=== PATIENT | male | born 1995 | race Caucasian/White ===

== ENCOUNTER 2018-10-25 12:48 | Inpatient (IN) | payer BC, MEDICAID, OTHER ==
[~2018-10-25] VITALS: Ht 182.9 cm; Wt 59.4 kg
[2018-10-25] MEDS ORDERED: CLON0.5T8 PO (12:58)
[2018-10-25] MEDS ORDERED: REME30TA PO (12:58)
[2018-10-25] MEDS ORDERED: PROP10TA56 PO (12:58)
[2018-10-25] MEDS ORDERED: GABA-843 PO (12:58)
[2018-10-25 13:30] LABS: BASO # 0.1 10^3/uL (0.0-0.2); BASO % 1.6 % (0.0-1.0); EOS # 0.3 10^3/uL (0.0-0.5); EOS % 3.8 % (0.0-3.0); HEMATOCRIT 42.3 % (42.0-52.0); HEMOGLOBIN 14.9 g/dl (13.5-17.5); LYMPH % 26.6 % (24.0-44.0); MEAN CORPUSCULAR HEMOGLOBIN 33.5 pg (27.0-33.0); MEAN CORPUSCULAR HGB CONC 35.2 g/dl (32.0-36.5); MEAN CORPUSCULAR VOLUME 95.1 fl (80.0-96.0); MONO # 0.7 10^3/uL (0.0-0.8); MONO % 8.7 % (0.0-5.0); NEUTROPHILS # 4.5 10^3/uL (1.5-8.5); PLATELET COUNT, AUTOMATED 202 10^3/uL (150-450); RED BLOOD COUNT 4.45 10^6/uL (4.30-6.10); WHITE BLOOD COUNT 7.6 10^3/uL (4.0-10.0)
[2018-10-25 13:58] LABS: ALBUMIN 4.4 GM/DL (3.2-5.2); ALT/SGPT 51 U/L (12-78); BILIRUBIN,DIRECT 0.3 MG/DL (0.0-0.2); BLOOD UREA NITROGEN 9 MG/DL (7-18); CALCIUM LEVEL 9.2 MG/DL (8.5-10.1); CARBON DIOXIDE LEVEL 25 MEQ/L (21-32); CHLORIDE LEVEL 102 MEQ/L (98-107); GLOMERULAR FILTRATION RATE > 60.0 (>60); GLUCOSE, FASTING 93 MG/DL (70-100); LIPASE 147 U/L (73-393); POTASSIUM SERUM 3.7 MEQ/L (3.5-5.1); SODIUM LEVEL 140 MEQ/L (136-145)
[2018-10-25] MEDS ORDERED: NS 1,000 ML IV ONE ×2 (15:15→17:45)
[2018-10-25] MEDS ORDERED: ONDANSETRON 4MG/2ML VIAL (J2405) IV ONE (15:15)
[2018-10-25] MEDS: GASTROGRAFIN SOLUTION 30ML PO SCH ×2 (15:35→16:18)
[2018-10-25] MEDS ORDERED: KETOROLAC 30 MG/ML VIAL (J1885) IV ONE (15:45)
[2018-10-25] MEDS ORDERED: ISOVUE-370 76% 100ML VIAL (Q9967) As Ordered ONE (16:58)
[2018-10-25] MEDS ORDERED: methylPREDNISolone INJ 125 MG/2 ML VIAL (J2930) IV STA (18:31)
[2018-10-25] MEDS ORDERED: methylPREDNISolone INJ 125 MG/2 ML VIAL (J2930) IV SCH (18:45)
[2018-10-25] MEDS ORDERED: MELA10CA2 PO (18:54)
[2018-10-25] MEDS ORDERED: MORPHINE 2 MG/ML 1ML SYRINGE (J2270) IV ONE (19:15)
[2018-10-25] MEDS ORDERED: ACETAMINOPHEN TAB 650MG DOSE (2X325MG) PO PRN (19:45)
[2018-10-25 19:49] LABS: CK-MB VALUE MASS 2.2 NG/ML (<3.6); CPK CREATINE PHOSPHOKINASE 529 U/L (39-308); MB/CK RELATIVE INDEX 0.42 (< OR =4); TROPONIN I < 0.02 NG/ML (< 0.10)
--- NOTE | 2018-10-25 20:34 | REP ---
CHEST, TWO VIEWS: There is no evidence of acute infiltrate. No pleural effusion is seen. The heart is normal in size. The mediastinal silhouette is unremarkable. The visualized osseous structures are intact. IMPRESSION: No acute pulmonary disease. Electronically Signed by Shekhar Charlton MD 10/26/2018 06:25 P
[2018-10-25] MEDS ORDERED: clonazePAM 0.5 MG TAB PO STA (21:11)
--- NOTE | 2018-10-25 21:46 | ECGEPIP ---
[facility] - ED Test Date: 2018-10-25 Pat Name: NORMA HOWARD Department: Room: - Gender: Male Equip Maint Eng: : 1995 Requested By: Sissy Reyna Order Number: [id number] Reading MD: Sissy Reyna Measurements Intervals Rankin Rate: 68 P: 53 TX: 116 QRS: 72 QRSD: 76 T: 58 QT: 427 QTc: 457 Interpretive Statements SINUS RHYTHM WITH SHORT TX INTERVAL EARLY REPOLARIZATION NO PRIOR Electronically Signed on 10-25-2018 21:46:20 EDT by Sissy Reyna
[2018-10-25 22:05] VITALS: BP 150/82
--- NOTE | 2018-10-25 22:22 | HPEPDOC ---
[facility] Medical History & Physical Date of Admission Oct 25, 2018 Date of Service: Oct 25, 2018 History and Physical CHIEF COMPLAINT: [abd pain ] HISTORY OF PRESENT ILLNESS This is a 23 yo male with pmhx UC and crohns, htn and anxiety who presented to the ed for bloody diarrhea for the past few days. Patient was admitted last month in [place] for the same thing. He is not taking any meds, said he doesn't have pmd, because he is always moving. Patient also said he has lost about 10-15 lbs in the past few days as well. Per his father at bedside patient doesn't eat much., "sometimes , he would just eat a banana for the whole day" . Patient also has intermittent nbnb vomiting too, but denied fever, chills, sob. He has left lateral chest wall pain. Patient's father also stated that sometimes patient just stares and stays unresponsive for a while , but denied shaking or loc . ] PAST MEDICAL HISTORY: crohns UC htn anxiety PAST SURGICAL HISTORY: none SOCIAL HISTORY: lives with father, denied smoking, etoh use or drug use FAMILY HISTORY: strong paternal family hx of colitis in multiple family members ALLERGIES: Please see below. HOME MEDICATIONS: Please see below. LABORATORY DATA: See below. IMAGING: [CT ABD report pending ] MICROBIOLOGY: Please see below. ROS - all 10 point review of system is negative except for whats listed in HPI Physical exam Gen: NAD, healthy appearing , HEENT: normocephalic, atraumatic, no discharge from ears or nose, no oropharyngeal erythema or exudate, neck is supple, no lymphadenopathy, trachea midline CVS: RRR, normal S1n S2, no murmur, rubs, or gallops, no edema, no jvd Resp: LCTAB, no rhonchi, wheezes or crackles Abd : soft nontender, normal bowel sounds, no rebound tenderness or guarding MSK: no swelling, full range of motion, strength 5/5 Neuro: AOAx3, no confusion, no focal deficit Psych: normal mood and affect, good judgment ASSESSMENT and plan crohns flare - last colonoscopy was about 11yrs ago -s/p steroid in ed -f/u gi panel -GI consulted - Dr. Martinez informed by ed -c/w steroid for now htn c/w propranol anxiety//sleep problems c/w melatonin c/w mirtazipine Concern for abscent seizure outpt neuro consult dvt ppx -scd full code, from home , no svc Vital Signs Vital Signs Date Time Temp Pulse Resp B/P (MAP) Pulse Ox O2 Delivery O2 Flow Rate FiO2 10/25/18 22:07 17 10/25/18 21:09 78 151/100 (117) 100 Room Air 10/25/18 17:09 96.3 Laboratory Data Labs 24H Laboratory Tests 2 10/25/18 13:09: Immature Granulocyte % (Auto) 0.3, White Blood Count 7.6, Red Blood Count 4.45, Hemoglobin 14.9, Hematocrit 42.3, Mean Corpuscular Volume 95.1, Mean Corpuscular Hemoglobin 33.5H, Mean Corpuscular Hemoglobin Concent 35.2, Red Cell Distribution Width 13.5, Platelet Count 202, Neutrophils (%) (Auto) 59.0, Lymphocytes (%) (Auto) 26.6, Monocytes (%) (Auto) 8.7H, Eosinophils (%) (Auto) 3.8H, Basophils (%) (Auto) 1.6H, Neutrophils # (Auto) 4.5, Lymphocytes # (Auto) 2.0, Monocytes # (Auto) 0.7, Eosinophils # (Auto) 0.3, Basophils # (Auto) 0.1, Nucleated Red Blood Cells % (auto) 0.0, Anion Gap 13, Glomerular Filtration Rate > 60.0, Calcium Level 9.2, Aspartate Amino Transf (AST/SGOT) 103H, Alanine Aminotransferase (ALT/SGPT) 51, Alkaline Phosphatase 91, Total Bilirubin 1.0, Direct Bilirubin 0.3H, Total Protein 8.0, Albumin 4.4, Albumin/Globulin Ratio 1.22, Lipase 147 10/25/18 14:18: Urine Color STRAW, Urine Appearance CLEAR, Urine pH 7.0, Urine Specific [place] 1.005, Urine Protein 1+H, Urine Glucose (UA) NEGATIVE, Urine Ketones NEGATIVE, Urine Blood NEGATIVE, Urine Nitrite NEGATIVE, Urine Bilirubin NEGATIVE, Urine Urobilinogen 0.2, Urine Leukocyte Esterase NEGATIVE, Urine WBC (Auto) 1, Urine RBC (Auto) 1, Urine Hyaline Casts (Auto) 0, Urine Bacteria (Auto) NEGATIVE, Urine Squamous Epithelial Cells 0, Urine Sperm (Auto) 10/25/18 15:27: POC Lactate (Misc Panel) 2.01*H 10/25/18 19:07: Total Creatine Kinase 529H, Creatine Kinase MB 2.2, Creatine Kinase MB Relative Index 0.42, Troponin I < 0.02 CBC/BMP Laboratory Tests 10/25/18 13:09 Red Blood Count 4.45, Mean Corpuscular Volume 95.1, Mean Corpuscular Hemoglobin 33.5 H, Mean Corpuscular Hemoglobin Concent 35.2, Red Cell Distribution Width 13.5, Neutrophils (%) (Auto) 59.0, Lymphocytes (%) (Auto) 26.6, Monocytes (%) (Auto) 8.7 H, Eosinophils (%) (Auto) 3.8 H, Basophils (%) (Auto) 1.6 H, Neutrophils # (Auto) 4.5, Lymphocytes # (Auto) 2.0, Monocytes # (Auto) 0.7, Eosinophils # (Auto) 0.3, Basophils # (Auto) 0.1 Home Medications Scheduled Melatonin (Melatonin) 10 Mg Capsule, 10 MG PO QHS Mirtazapine (Remeron) 30 Mg Tablet, 30 MG PO QHS Scheduled PRN Clonazepam (Clonazepam) 0.5 Mg Tablet, 0.5 MG PO BID PRN for ANXIETY Gabapentin (Gabapentin) 300 Mg Capsule, 300 MG PO TID PRN for PAIN Propranolol HCl (Propranolol HCl) 10 Mg Tablet, 10 MG PO BID PRN for ANXIETY Allergies Coded Allergies: No Known Allergies (Unverified , 10/25/18) A-FIB/CHADSVASC A-FIB History Current/History of A-Fib/PAF?: No Current PO Anticoag Therapy: No Age/Risk Factor Scoring CHADSVASC: CHADSVASC Response (Comments) Value Age Risk Factor Age < 65 years old 0 Gender Risk Factor Male 0 Hx of HTN Yes 1 Hx of Stroke/TIA/or VTE No 0 Hx of Diabetes No 0 Hx of Vascular Disease No 0 Total 1 LG RANDALL MD Oct 25, 2018 22:22
[2018-10-26] VITALS (8 sets, daily range): BP systolic 133–154; BP diastolic 78–107
[2018-10-26] MEDS ORDERED: MORPHINE 4 MG/ML 1ML VIAL/SYRINGE (J2270) IV PRN (00:30)
[2018-10-26] MEDS ORDERED: PROPRANOLOL 10 MG TAB PO PRN ×2 (00:30→09:00)
[2018-10-26] MEDS ORDERED: GABAPENTIN 300 MG CAP PO PRN (00:30)
[2018-10-26] MEDS ORDERED: ONDANSETRON 4 MG TAB (S0181) PO PRN (00:30)
[2018-10-26] MEDS: MIRTAZAPINE 15 MG TAB PO SCH ×2 (00:56→21:12)
[2018-10-26] MEDS: RAMELTEON 8 MG TAB (ROZEREM) PO SCH ×2 (00:56→21:12)
[2018-10-26] MEDS: predniSONE 20 MG TAB PO SCH ×3 (05:57→21:12)
[2018-10-26 06:09] LABS: HEMATOCRIT 41.7 % (42.0-52.0); HEMOGLOBIN 14.6 g/dl (13.5-17.5); MEAN CORPUSCULAR HEMOGLOBIN 32.6 pg (27.0-33.0); MEAN CORPUSCULAR VOLUME 93.1 fl (80.0-96.0); PLATELET COUNT, AUTOMATED 194 10^3/uL (150-450); RED BLOOD COUNT 4.48 10^6/uL (4.30-6.10); WHITE BLOOD COUNT 3.7 10^3/uL (4.0-10.0)
[2018-10-26 06:32] LABS: BLOOD UREA NITROGEN 8 MG/DL (7-18); CALCIUM LEVEL 9.1 MG/DL (8.5-10.1); CARBON DIOXIDE LEVEL 27 MEQ/L (21-32); CHLORIDE LEVEL 97 MEQ/L (98-107); CREATININE FOR GFR 0.76 MG/DL (0.70-1.30); GLOMERULAR FILTRATION RATE > 60.0 (>60); GLUCOSE, FASTING 103 MG/DL (70-100); MAGNESIUM LEVEL 1.7 MG/DL (1.8-2.4); POTASSIUM SERUM 3.9 MEQ/L (3.5-5.1); SODIUM LEVEL 134 MEQ/L (136-145)
--- NOTE | 2018-10-26 07:51 | REP ---
CT of the abdomen and pelvis with IV contrast: There are no comparisons. The patient reportedly has clinical history of Crohn's colitis. The visualized lung marcus are unremarkable. There is decreased density throughout the hepatic parenchyma compatible with marked hepato steatosis. There is minimal subcutaneous body fat. There are no hepatic masses. There is no biliary duct dilatation. The gallbladder, pancreas and spleen are unremarkable. The adrenals, kidneys and abdominal aorta are unremarkable. There is no bowel distension or obstruction. Pelvis: The terminal ileum is unremarkable. The appendix is parallel to the tip of the cecum is unremarkable. There are areas of wall thickening in the sigmoid colon and rectosigmoid colon, compatible with the clinical history of Crohn's colitis. There are no diverticula. No other areas of colonic wall thickening are identified by CT. There is no ascites or adenopathy. The bladder is unremarkable. Skeletal structures are unremarkable. Sacroiliac articulations are unremarkable. A limbus vertebra is incidentally noted along the anterior superior margin of the L5 vertebral body. Impression: Focal zones of wall thickening of the sigmoid colon and rectosigmoid colon compatible with the clinical history of Crohn's colitis. There is no pericolonic inflammation or abscess. There is no ascites. The terminal ileum is unremarkable. No other areas of colonic or small bowel wall thickening are identified. There is hepato steatosis, somewhat unusual at this patient's age . There is minimal subcutaneous body fat. Electronically Signed by Shekhar Pittman MD 10/26/2018 07:42 A
[2018-10-26] MEDS ORDERED: hydrOXYzine 25 MG TAB PO ONE (09:45)
[2018-10-26] MEDS ORDERED: amLODIPine 5 MG TAB PO ONE ×2 (10:45→11:00)
[2018-10-26] MEDS ORDERED: PERCOCET 5MG/325MG TAB PO PRN (11:45)
--- NOTE | 2018-10-26 11:51 | IPNPDOC ---
Text Note Date of Service The patient was seen on 10/26/18. NOTE Subjective: PMHx: Mr. Saul is a 23 year old male with a PMHx significant for UC, Crohns and anxiety who presents with complaints of severe abdominal pain, bloody diarrhea, vomiting, 10-15 lb weight loss in 1 week. He states that his symptoms began 4 days ago. He currently rates his abdominal pain as a 6 or 7 out of 10 and says on presentation to the ER it was a 10/10. He describes the pain as sharp, exacerbated by palpation, and present throughout his entire abdomen. Upon admission he received an abdominal/Pelvic CT which showed marked hepatic steatosis and areas of wall thickening in the sigmoid colon and rectosigmoid colon compatible with Crohns colitis. While at the ER he also complained of chest pain and said he feels like he is going to . EKG and Troponins were negative. He also complained of sharp chest pain this morning after eating br eakfast. Repeat EKG was done and was negative for pathology. He admits that he has a history of anxiety with panic attacks and feels this could describe these events. Mr. Saul also stated that he had flank pain rated 4/10 yesterday that started after receiving his Prednisone but says the pain self-resolved. Finally, Mr. Saul also states he has a history of HTN and GERD. His HTN was originally diagnosed 2-3 years ago after his blood pressure was noted to be consistently elevated by physicians he was seeing for his anxiety. He says he was prescribed Propranolol for the HTN but is still hypertensive. Regarding his acid reflux, Mr. Saul say he suffered from acid reflux as a young teenager and that he took Prilosec for years until 17 years old. His Acid reflux has since returned and is currently bothering him. MHx: Crohns Disease w/ Colitis Anxiety/Panic Disorder Acute Pancreatitis Acid Reflux Allergies: NKA Procedural Hx: None reported Social Hx: Denies EtOH Denies Tobacco usage Denies Illicit Drug usage Family Hx: Father, 2 cousins, aunt, and a uncle have Crohn's disease Review of systems: HEENT: Positive for mild tinnitus in both ears that pt states began 4 days ago concurrently with his current GI symptoms. Negative for headache, changes in vision Respiratory: Positive for occasional SOB which patient associates with panic attacks-like episodes. Negative for cough. Cardiovascular: Positive for palpitations which he stated began last night and felt again this morning. Positive for sharp chest pain B/L which began this morning after he ate breakfast which he rated 6/10. Positive for HTN which he says was originally diagnosed at approximately 20 years of age. He states he was given medications for it from multiple physicians while getting seen for his anxiety. He does not remember the medications name. GI: Negative for current N/V, diarrhea, constipation. Last BM was yesterday morning and was bloody. Positive for current abdominal pain that is sharp, exacerbated by palpation, and located in all four quadrants. Rated 6/10. : Negative for dysuria or polyuria MSK: Positive for general sense of muscle weakness, no new focal deficits admitted. Psych: Generalized anxiety with panic attack-like episodes noted Objective: Vitals: See Below Physical Exam: General: Thin male who seems mildly fatigued. Cooperative to exam. Heart: Normal S1/S2 heart sounds with no audible rubs, gallops, or murmurs noted. Lungs: Clear to auscultation B/L Gastrointestinal: Normal bowel sounds present in all 4 quadrants. Tenderness no andrea to palpation in all 4 quadrants and along his midgastric line. No appreciable organomegaly Skin/extremities: No rashes or skin lesions noted. No Jaundice noted. Neurological: No nonfocal deficits noted. Psychological: Appropriate responses with a restricted affect. Slightly pressured speech. Assessment and Plan: #. Crohn's Flare up: Continue prednisone, gabapentin, acetaminophen, and ondans etron for antinflammatory and symptom management. Pt has not had any emetic episodes or bloody stools since admission. GI consult for possible colonoscopy with biopsy. Patient's diagnosis is based on clinical signs and family Hx, but has not had a definitive colonoscopy or biopsy yet. #. Chest pain: Pt's reported 2 episodes of acute onset chest pain which he described as being sharp and B/L. EKGs and Cardiac enzymes were tested for each event and were negative for pathology. Chest pain likely due to panic attacks attributable to his Hx of anxiety and his current disease state. Tums, Hydroxyz ine and Clonazepam were given to manage this pain. #. Unspecified Anxiety with panic attack-like episodes: Continue with Hydroxyzine, Clonazepam, Mirtazapine, and Ramelteon as needed to decrease anxi ety and promote sleep. #. HTN: Possibly 2/2 anxiety. Continue to treat his Crohn's and his anxiety and monitor for improvement for his HTN. Continue Propranolol. If no improvement s/p management of his conditions then further workup for HTN is required (thyroid, SAEED, malignancy, RAAS axis pathology ect) #. Acid Reflux: Start Omeprazole 20 mg PO QD. Administer a low fat diet. #. Disposition: Discharge upon resolution of GI symptoms (pain, diarrhea) with possible GI consult prior to admission. Upon discharge ensure continuity of care, patient has moved several time in his life and has had dozens of providers. He was not on medical management for his Crohn's prior to his admission to [facility] and a smooth transition to a new PCP would benefit this patient. I saw and evaluated the patient. I agree with the findings and plan of care as documented in the above note Mychal HEALY, I+O VSMychal, I+O Laboratory Tests 10/25/18 13:09 Red Blood Count 4.45, Mean Corpuscular Volume 95.1, Mean Corpuscular Hemoglobin 33.5 H, Mean Corpuscular Hemoglobin Concent 35.2, Red Cell Distribution Width 13.5, Neutrophils (%) (Auto) 59.0, Lymphocytes (%) (Auto) 26.6, Monocytes (%) (Auto) 8.7 H, Eosinophils (%) (Auto) 3.8 H, Basophils (%) (Auto) 1.6 H, Neutrophils # (Auto) 4.5, Lymphocytes # (Auto) 2.0, Monocytes # (Auto) 0.7, Eosinophils # (Auto) 0.3, Basophils # (Auto) 0.1 10/26/18 05:39 Red Blood Count 4.48, Mean Corpuscular Volume 93.1, Mean Corpuscular Hemoglobin 32.6, Mean Corpuscular Hemoglobin Concent 35.0, Red Cell Distribution Width 12.8, Calcium Level 9.1 Vital Signs Date Time Temp Pulse Resp B/P (MAP) Pulse Ox O2 Delivery O2 Flow Rate FiO2 10/26/18 11:01 69 150/107 10/26/18 09:24 98.2 18 98 10/25/18 21:09 Room Air I&O- Last 24 Hours up to 6 AM 10/26/18 06:00 Intake Total 1300 ml Output Total 0 ml Balance 1300 ml WAYNE CANO OMS-3 Oct 26, 2018 11:51 ERIKA LE MD Oct 27, 2018 13:05
[2018-10-26] MEDS: clonazePAM 0.5 MG TAB PO PRN (12:16)
[2018-10-26 13:29] LABS: C REACTIVE PROTEIN QUANTITATIV < 0.30 MG/DL (0.00-0.30); TROPONIN I < 0.02 NG/ML (< 0.10)
[2018-10-26] MEDS ORDERED: CALCIUM CARBONATE 500 MG CHEW U/D PO PRN (15:00)
[2018-10-27 02:00] VITALS: BP 140/91
[2018-10-27 06:00] VITALS: BP 131/86
[2018-10-27] MEDS: predniSONE 20 MG TAB PO SCH (06:23)
[2018-10-27] MEDS ORDERED: PANTOPRAZOLE 40MG INJ (PROTONIX) (C9113) IV SCH (07:00)
[2018-10-27] MEDS ORDERED: CALCIUM CARBONATE 500 MG CHEW U/D PO PRN (07:00)
[2018-10-27 08:26] LABS: HEMATOCRIT 39.9 % (42.0-52.0); HEMOGLOBIN 14.1 g/dl (13.5-17.5); MEAN CORPUSCULAR HGB CONC 35.3 g/dl (32.0-36.5); MEAN CORPUSCULAR VOLUME 96.1 fl (80.0-96.0); PLATELET COUNT, AUTOMATED 164 10^3/uL (150-450); RED BLOOD COUNT 4.15 10^6/uL (4.30-6.10); WHITE BLOOD COUNT 6.2 10^3/uL (4.0-10.0)
[2018-10-27 08:40] LABS: BLOOD UREA NITROGEN 7 MG/DL (7-18); CALCIUM LEVEL 9.4 MG/DL (8.5-10.1); CARBON DIOXIDE LEVEL 28 MEQ/L (21-32); CHLORIDE LEVEL 101 MEQ/L (98-107); CREATININE FOR GFR 0.79 MG/DL (0.70-1.30); GLOMERULAR FILTRATION RATE > 60.0 (>60); GLUCOSE, FASTING 114 MG/DL (70-100); POTASSIUM SERUM 3.8 MEQ/L (3.5-5.1); SODIUM LEVEL 139 MEQ/L (136-145)
[2018-10-27 10:00] VITALS: BP 149/91
[2018-10-27 10:28] VITALS: BP 132/81
--- NOTE | 2018-10-27 10:59 | ECGEPIP ---
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
[2018-10-27] MEDS ORDERED: PROT1TAB2 PO (11:16)
[2018-10-27] MEDS ORDERED: ASAC800T3 PO (11:16)
[2018-10-27] MEDS ORDERED: PRED20TA PO (11:16)
[2018-10-27] MEDS: clonazePAM 0.5 MG TAB PO PRN (11:49)
[2018-10-27] MEDS ORDERED: CLON0.5T17 PO (12:48)
--- NOTE | 2018-10-27 14:15 | DS.PDOC ---
Discharge Summary General Date of Admission Oct 25, 2018 at 19:31 Date of Discharge 10/27/18 Attending Physician: ERIKA LE MD Specialist/Consultants Involve: Refugio Martinez Discharge Summary PROCEDURES PERFORMED DURING STAY: None. ADMITTING/DISCHARGE DIAGNOSES: 1. Crohn's/ulcerative colitis flareup 2. Noncardiac chest pain 3. Anxiety 4. Hypertension 5. Acid reflux COMPLICATIONS/CHIEF COMPLAINT: Abdominal pain, bloody diarrhea, vomiting HISTORY OF PRESENT ILLNESS/HOSPITAL COURSE: Patient is a 23-year-old male who presented to the emergency room on 10/25/2018 with a one-week history of abdominal pain, bloody diarrhea, vomiting, and a 10-15 pound weight loss. Patient says he has a history of either ulcerative colitis or Crohn's. Patient had just recently moved to the area a few weeks ago. Patient was originally from [place]. Patient says he was hospitalized in [place] for a similar episode of Crohn's/ulcerative colitis a few weeks ago. Patient was admitted and started on prednisone 20 mg every 8 hours and was given pain medication. Throughout the patient's hospitalization he complained of chest pain. A cardiac workup was performed and showed a negative EKG for ischemic changes as well as negative troponins. Patient's vitals remained stable so pulmonary embolism was very unlikely. Patient has a history of anxiety and does have panic attacks. When his anxiety was treated, the patient's chest pain went away. After eating, the patient's chest pain would return. The patient was given Tums which helped with the patient's chest/abdominal discomfort. Patient did not have any episodes of diarrhea while in the hospital. Gastroenterology saw the patient and recommended the patient continue on prednisone 20 mg daily and mesalamine 800 mg 3 times a day and see Dr. Martinez in 2 weeks. On 10/27/2018, patient was feeling better. Patient tried eat some toast and did have a little bit of stomach discomfort however, this was easily treated with Tums. Patient did have a panic attack prior to being discharged and the patient was sent home with 5 days' worth of clonazepam with plans to follow-up with behavioral health. Patient was deemed ready for discharge and was discharged home on 10/27/2018. DISCHARGE MEDICATIONS: Please see below. ALLERGIES: Please see below. PHYSICAL EXAMINATION ON DISCHARGE: Vitals: (see below) General: No acute distress, laying comfortably in bed. HEENT: Moist mucous membranes. Neck: No JVD or lymphadenopathy Cardiac: RRR, No murmurs Pulm: Clear to auscultation b/l. No wheezing, rhonchi Abd: NT/ND + BS Ext: No edema or cyanosis LABORATORY DATA: Please see below. IMAGING: A CT of the abdomen and pelvis with IV and oral contrast performed on 10/25/2018 showed focal zones wall thickening of the sigmoid colon and rectosigmoid colon compatible with clinical history of Crohn's colitis. There is no pericolonic inflammation or abscess. There is no ascites. The terminal ileum was unremarkable. No other areas of colonic or small bowel wall thickening identified. There is a pattern steatosis, somewhat unusual at this patient's age. There is minimal subcutaneous body fat. A chest x-ray performed in 10/25/2017 showed no acute pulmonary disease. PROGNOSIS: Good ACTIVITY: As tolerated. DIET: Brat diet advanced as tolerated DISCHARGE PLAN/DISPOSITION: Discharge home DISCHARGE INSTRUCTIONS: 1. Establish with a new PCP in the area and follow-up within the next 2 weeks. 2. Call gastroenterology office on Monday and set up an appointment for 2 weeks from now. 3. Take prednisone 20 mg daily until you see gastroenterology. 4. Start mesalamine 800 mg 3 times a day until you see gastroenterology. 5. Start pantoprazole 40 mg daily until you see gastroenterology. 6. Return to the hospital if symptoms worsen. DISCHARGE CONDITION: Stable. I saw and evaluated the patient. I agree with the findings and plan of care as documented in the documenters note. I spent 45 minutes coordinating this patien t's discharge. Vital Signs/I&Os Vital Signs Date Time Temp Pulse Resp B/P (MAP) Pulse Ox O2 Delivery O2 Flow Rate FiO2 10/27/18 10:28 98.4 92 20 132/81 (98) 97 10/25/18 21:09 Room Air I&O- Last 24 Hours up to 6 AM 10/27/18 06:00 Intake Total 1020 ml Output Total 0 ml Balance 1020 ml Laboratory Data Labs 24H Laboratory Tests 2 10/27/18 07:52: Nucleated Red Blood Cells % (auto) 0.0, Anion Gap 10, Glomerular Filtration Rate > 60.0, Blood Urea Nitrogen 7, Creatinine 0.79, Sodium Level 139, Potassium Level 3.8, Chloride Level 101, Carbon Dioxide Level 28, Calcium Level 9.4 CBC/BMP Laboratory Tests 10/27/18 07:52 Red Blood Count 4.15 L, Mean Corpuscular Volume 96.1 H, Mean Corpuscular Hemoglobin 34.0 H, Mean Corpuscular Hemoglobin Concent 35.3, Red Cell Distribution Width 13.1, Calcium Level 9.4 Discharge Medications Scheduled Melatonin (Melatonin) 10 Mg Capsule, 10 MG PO QHS, (Reported) Mesalamine (Asacol Hd) 800 Mg Tablet.dr, 1 TAB PO TID Mirtazapine (Remeron) 30 Mg Tablet, 30 MG PO QHS, (Reported) Pantoprazole Sodium (Protonix) 40 Mg Tablet.dr, 1 TAB PO DAILY Prednisone (Prednisone) 20 Mg Tablet, 20 MG PO DAILY Scheduled PRN Clonazepam (Clonazepam) 0.5 Mg Tablet, 0.5 MG PO BID PRN for ANXIETY, (Reported) Clonazepam (Clonazepam) 0.5 Mg Tab.rapdis, 1 TAB PO BID PRN for ANXIETY Gabapentin (Gabapentin) 300 Mg Capsule, 300 MG PO TID PRN for PAIN, (Reported) Propranolol HCl (Propranolol HCl) 10 Mg Tablet, 10 MG PO BID PRN for ANXIETY, (Reported) Allergies Coded Allergies: No Known Allergies (Unverified , 10/25/18) PIPPA MCCALL DO Oct 27, 2018 14:15 ERIKA LE MD Oct 29, 2018 13:52
--- NOTE | 2018-10-28 08:56 | CR ---
DATE OF CONSULTATION: This is a 23-year white male who was admitted to [facility] ([facility]) for a previous known history of ulcerative colitis for at least 10 years. The patient has no complaints of fevers, night sweats or shaking chills. The patient has had for the last several weeks severe bloody diarrhea. The patient was apparently admitted last month in [place] for approximately a 3 day hospitalization for the same thing. He is not on any chronic medications. The patient apparently has always been moving. He has lost about 10-15 pounds in approximately 7-10 days. The patient apparently has a father who has known ulcerative colitis. Being seen now by GI for followup here for his ulcerative colitis. PAST MEDICAL HISTORY: 1. Ulcerative colitis. 2. Hypertension. 3. Generalized anxiety disorder with panic attacks. SOCIAL HISTORYL: The patient lives with his father. Denies alcohol or drug abuse. FAMILY HISTORY: Positive for ulcerative colitis in his father. REVIEW OF SYSTEMS: Noncontributory. In general, he is a well-developed, well-nourished, thin white male in no obvious acute distress. Appears stated age. Chest was clear. Cardiovascular exam showed a regular rhythm. No murmurs or gallops. Normal physiological split S1-S2. Abdomen soft, positive left-sided tenderness. No hepatosplenomegaly. Bowel sounds positive. Laboratory studies on admission shows a white count of 7600. H/H is 14.9 and 42.3. Platelets were normal at 202,000. Abdominal CT from 10/25/2018 was essentially normal except for thickening in the sigmoid colon and rectosigmoid for colon. The patient's terminal ileum was read as being normal. ANALYSIS: Apparent history of ulcerative colitis, rectal bleeding, diarrhea. At present time, the plan will be to send the patient home on prednisone 20 mg a day with Asacol tablets 800 mg 1 tablet by mouth three times a day. Discussion has been made for possible use of biologics on a chronic basis.
[2018-10-30 14:27] LABS: Chitobioside Carbohydrat (ACCA 36 units (0-90); Laminaribioside Carbohyd (ALCA 33 units (0-60); Mannobioside Carbohydrat (AMCA 22 units (0-100); Saccharomyces cerevisiae IgG A 18 units (0-50)
== END 2018-10-27 13:11 | disposition home or self-care (01) | DRG 245 ==
LOC: M ED 12:48 → M ED INP 19:31 → M MSPAV 22:00
PROVIDERS: ADMIT Internal Medicine; ATTEND Internal Medicine
DX: K50.90 Crohn's disease, unspecified, without complications (principal); I10 Essential (primary) hypertension; Z68.1 Body mass index [BMI] 19.9 or less, adult; F41.0 Panic disorder [episodic paroxysmal anxiety]; K21.9 Gastro-esophageal reflux disease without esophagitis; Z79.899 Other long term (current) drug therapy

== ENCOUNTER → 2019-01-23 | Outpatient (CLI) | payer OTHER ==
[~2019-01-23] MED LIST: ASAC800T3 PO; CLON0.5T17 PO; CLON0.5T2 PO; GABA-843 PO; MELA10CA2 PO; PRED20TA PO; PROP10TA56 PO; PROT1TAB2 PO; REME30TA PO
[2019-01-23 13:52] LABS: FREE T4 0.83 NG/DL (0.76-1.46); THYROID STIMULATING HORMONE 1.97 uIU/ML (0.358-3.740)
== END ==
LOC: M LAB 12:43
PROVIDERS: ATTEND Internal Medicine Gastroenterology
DX: R19.7 Diarrhea, unspecified (principal)

== ENCOUNTER → 2019-02-12 | Outpatient (CLI) | payer OTHER ==
[~2019-02-12] MED LIST changes: +E-Z-PAQUE 96% w/w SUSP 176GM BTL As Ordered ONE
--- NOTE | 2019-02-13 08:58 | REP ---
Small bowel follow-through The procedure was performed under the direct supervision of Dr. Torres. The images were reviewed with Dr. Torres. The plasticator film shows no organomegaly or pathological masses. The intestinal gas pattern is nonspecific. Liquid barium was administered and the barium column was followed through the small bowel to the level of the terminal ileum. Small bowel transit time is approximately 85 minutes . During fluoroscopy gentle palpation shows all loops are freely movable and pliable. There are no fixed or angulated loops. The small bowel mucosal pattern is normal in course and caliber. There is no transition to suggest a partial small bowel obstruction. Spot filming of the terminal ileum shows it to be unremarkable. Impression: Small bowel follow-through examination within normal limits. 0.8 minutes of fluoro time was utilized for this procedure. Electronically Signed by ANTONIO Irwin 02/13/2019 07:46 A Electronically Signed by Randell Torres MD 02/13/2019 08:50 A
== END ==
LOC: M RAD 08:10
PROVIDERS: ATTEND Internal Medicine Gastroenterology
DX: R19.7 Diarrhea, unspecified (principal)

== ENCOUNTER 2019-03-14 10:24 | Day surgery (SDC) | payer OTHER ==
[~2019-03-14] VITALS: Ht 182.9 cm; Wt 64.4 kg
[~2019-03-14 10:24] MED LIST changes: +DICY20TA11 PO; -E-Z-PAQUE 96% w/w SUSP 176GM BTL As Ordered ONE; +GABA800T4 PO; +NS 1,000 ML IV ONE; +PROP20TA72 PO; +RISP1TAB3 PO
[2019-03-14] MEDS ORDERED: LIDOCAINE 2% INJ 100 MG/5 ML SDV (FOR ANES.) As Ordered ONE (11:39)
[2019-03-14] MEDS ORDERED: propofoL 200 MG/20 ML VIAL As Ordered ONE ×2 (11:39→12:04)
--- NOTE | 2019-03-14 12:18 | ROOR ---
Patient Name: Lucian Saul Procedure Date: 03/14/2019 11:48 AM Date of : 1995 Age: 23 Room: [facility] Gender: Male Note Status: Finalized Procedure: Upper GI endoscopy Indications: Generalized abdominal pain, Weight loss Providers: Tor CHRISTENSEN MD Referring MD: Sj Atkins Do Requesting Provider: Medicines: Monitored Anesthesia Care Complications: No immediate complications. Procedure: Pre-Anesthesia Assessment: - The heart rate, respiratory rate, oxygen saturations, blood pressure, adequacy of pulmonary ventilation, and response to care were monitored throughout the procedure. The Endoscope was introduced through the mouth, and advanced to the second part of duodenum. The upper GI endoscopy was accomplished without difficulty. The patient tolerated the procedure well. Findings: The esophagus was normal. The stomach was normal. The examined duodenum was normal. Biopsies for histology were taken with a cold forceps in the second portion of the duodenum and in the third portion of the duodenum for evaluation of celiac disease. Biopsies were taken with a cold forceps on the anterior wall of the gastric antrum for Helicobacter pylori testing. Impression: - Normal esophagus. - Normal stomach. - Normal examined duodenum. - Biopsies were taken with a cold forceps for evaluation of celiac disease. - Biopsies were taken with a cold forceps for Helicobacter pylori testing. Recommendation: - Await pathology results. - Telephone endoscopist for pathology results in 2 weeks. - Observe patient's clinical course. Tor Christensen MD Tor CHRISTENSEN MD 03/14/2019 12:17:48 PM Electronically signed by Tor CHRISTENSEN MD Number of Addenda: 0 Note Initiated On: 03/14/2019 11:48 AM Estimated Blood Loss: Estimated blood loss: none.
--- NOTE | 2019-03-14 12:23 | ROOR ---
Patient Name: Lucian Saul Procedure Date: 03/14/2019 11:48 AM Date of : 1995 Age: 23 Room: [facility] Gender: Male Note Status: Finalized Procedure: Colonoscopy Indications: Abnormal CT of the GI tract, Chronic diarrhea, Weight loss Providers: Tor CHRISTENSEN MD Referring MD: Sj Atkins Do Requesting Provider: Medicines: Monitored Anesthesia Care Complications: No immediate complications. Procedure: Pre-Anesthesia Assessment: - The heart rate, respiratory rate, oxygen saturations, blood pressure, adequacy of pulmonary ventilation, and response to care were monitored throughout the procedure. The Colonoscope was introduced through the anus and advanced to 15 cm into the ileum. The colonoscopy was performed without difficulty. The patient tolerated the procedure well. The quality of the bowel preparation was good. Findings: The perianal and digital rectal examinations were normal. The terminal ileum appeared normal. Retroflexion in the right colon was performed. The colon (entire examined portion) appeared normal. There is no endoscopic evidence of inflammation in the entire colon. There is no endoscopic evidence of inflammation in the entire examined ileum. Biopsies were taken with a cold forceps in the entire colon and in the terminal ileum for histology. Fluid aspiration for microbiology was performed. Impression: - The examined portion of the ileum was normal. - The entire examined colon is normal. - Biopsies were taken with a cold forceps for histology in the entire colon and in the terminal ileum. - Fluid aspiration was performed for GI panel. Recommendation: - Telephone endoscopist for pathology results in 2 weeks. - Return to referring physician as previously scheduled. Tor Christensen MD Tor CHRISTENSEN MD 03/14/2019 12:23:35 PM Electronically signed by Tor CHRISTENSEN MD Number of Addenda: 0 Note Initiated On: 03/14/2019 11:48 AM Estimated Blood Loss: Estimated blood loss: none.
[2019-03-14 12:40] VITALS: BP 142/78
== END 2019-03-14 12:59 | disposition home or self-care (01) ==
LOC: M OPP 10:24
PROVIDERS: ATTEND Internal Medicine Gastroenterology
DX: K52.9 Noninfective gastroenteritis and colitis, unspecified (principal); R63.4 Abnormal weight loss; R93.3 Abnormal findings on diagnostic imaging of other parts of digestive tract; R10.84 Generalized abdominal pain; K63.89 Other specified diseases of intestine; I10 Essential (primary) hypertension; K51.90 Ulcerative colitis, unspecified, without complications; K92.2 Gastrointestinal hemorrhage, unspecified; K21.9 Gastro-esophageal reflux disease without esophagitis; R12 Heartburn; F41.0 Panic disorder [episodic paroxysmal anxiety]; F32.9 Major depressive disorder, single episode, unspecified; F17.200 Nicotine dependence, unspecified, uncomplicated; Z79.899 Other long term (current) drug therapy

== ENCOUNTER 2020-06-22 11:44 | Emergency (ER) | payer OTHER ==
[~2020-06-22] VITALS: Ht 182.9 cm; Wt 72.7 kg
[~2020-06-22 11:44] MED LIST changes: +GABA-282 PO; -GABA-843 PO; +MIRT-60 PO; -NS 1,000 ML IV ONE; -REME30TA PO; +RISP-8 PO; -RISP1TAB3 PO
[2020-06-22 12:41] LABS: BASO # 0.1 10^3/uL (0.0-0.2); BASO % 1.1 % (0.0-1.0); EOS # 0.2 10^3/uL (0.0-0.5); EOS % 3.7 % (0.0-3.0); HEMATOCRIT 44.9 % (42.0-52.0); HEMOGLOBIN 15.6 g/dl (13.5-17.5); LYMPH % 22.4 % (24.0-44.0); MEAN CORPUSCULAR HEMOGLOBIN 33.1 pg (27.0-33.0); MEAN CORPUSCULAR HGB CONC 34.7 g/dl (32.0-36.5); MEAN CORPUSCULAR VOLUME 95.1 fl (80.0-96.0); MONO # 0.4 10^3/uL (0.0-0.8); MONO % 9.7 % (2.0-8.0); NEUTROPHILS # 2.9 10^3/uL (1.5-8.5); NEUTROPHILS % 62.7 % (36.0-66.0); PLATELET COUNT, AUTOMATED 186 10^3/uL (150-450); RED BLOOD COUNT 4.72 10^6/uL (4.30-6.10); WHITE BLOOD COUNT 4.6 10^3/uL (4.0-10.0)
[2020-06-22 13:04] LABS: ALBUMIN 4.7 GM/DL (3.2-5.2); BILIRUBIN,DIRECT 0.4 MG/DL (0.0-0.2); BILIRUBIN,TOTAL 1.5 MG/DL (0.2-1.0); TOTAL PROTEIN 8.6 GM/DL (6.4-8.2)
--- NOTE | 2020-06-22 13:33 | REP ---
INDICATION: difficulty swallowing. COMPARISON: None. TECHNIQUE: Three views. AP and lateral projections. 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 No other bony abnormality is appreciated. The retropharyngeal soft tissues are not widened. Epiglottis is normal in appearance. Glottic and subglottic airway are intact. Nasopharynx and hypopharynx appear normal. Lung apices are clear on the frontal view. IMPRESSION: No soft tissue abnormality noted. 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 <Electronically signed by Mike Torres > 06/22/20 [id number]
--- NOTE | 2020-06-22 13:54 | REP ---
INDICATION: upper abd pain, nausea worse with food. COMPARISON: None. TECHNIQUE: Real-time sonographic evaluation of right upper quadrant performed. FINDINGS: The gallbladder demonstrates no evidence of intraluminal sludge or calculi, wall thickening or pericholecystic fluid. There is no intrahepatic or extrahepatic biliary dilatation, common bile duct measures 3 mm in maximum diameter. The liver demonstrates homogeneous echotexture with no gross mass. Visualized pancreas is grossly unremarkable, not optimally seen due to overlying bowel gas. The right kidney demonstrates no hydronephrosis, with a normal size of 9.7 cm in length. No free fluid is seen. IMPRESSION: Negative right upper quadrant ultrasound. <Electronically signed by Shekhar Charlton > 06/22/20 [id number]
[2020-06-22] MEDS ORDERED: NS 1,000 ML IV ONE (14:00)
[2020-06-22] MEDS ORDERED: ISOVUE-370 76% 100ML VIAL As Ordered ONE (14:47)
[2020-06-22] MEDS: GASTROGRAFIN SOLUTION 30ML PO SCH ×2 (14:54→15:25)
--- NOTE | 2020-06-22 16:57 | REP ---
INDICATION: sev upper/lower pain, hx colitis, unable to eat COMPARISON: None. TECHNIQUE: CT Scan of the abdomen and pelvis was performed with intravenous administration of 100 cc of Isovue 370, and oral contrast. FINDINGS: Lung bases: Unremarkable. Liver: Normal Gallbladder: Unremarkable. Spleen: Normal. Adrenals: Normal. Pancreas: Normal. Kidneys: Normal. Small and large bowel: Unremarkable. Free fluid: None. Abdominal aorta: No aneurysm or dissection. Adenopathy: None. Appendix: Not inflamed. Osseous structures: There is an unfused ossification center at the anterior superior aspect of the L5 vertebral body.. Pelvis: No mass. IMPRESSION: Negative CT abdomen and pelvis. <Electronically signed by Shekhar Charlton > 06/22/20 [id number]
[2020-06-22 17:32] VITALS: BP 161/91
== END 2020-06-22 18:42 | disposition home or self-care (01) ==
LOC: M ED 11:44
DX: R10.9 Unspecified abdominal pain (principal); R63.0 Anorexia; R11.0 Nausea; I10 Essential (primary) hypertension; K50.90 Crohn's disease, unspecified, without complications
CPT/HCPCS: 70360; 74177; 76705; 80047; 80076; 83690; 85025; 96360; 96361; 99284; Q9963; Q9967

== ENCOUNTER 2022-01-04 01:05 | Inpatient (IN) | payer OTHER ==
[~2022-01-04] VITALS: Ht 182.9 cm; Wt 150.0 kg
[~2022-01-04 01:05] MED LIST changes: -DICY20TA11 PO; +DICY20TA20 PO
[2022-01-04 02:45] LABS: APPEARANCE, URINE MANUAL CLEAR (CLEAR); COLOR, URINE MANUAL YELLOW (YELLOW); PH,URINE MAN 6.5 UNITS (5.0 - 7.0)
[2022-01-04 02:46] LABS: BILIRUBIN, URINE MANUAL 1+ (NEGATIVE); BLOOD URINE MANUAL TRACE (NEGATIVE); GLUCOSE, URINE (UA) MANUAL NEGATIVE (NEGATIVE); KETONE, URINE MANUAL 1+ mg/dL (NEGATIVE); NITRITE, URINE MANUAL NEGATIVE (NEGATIVE); PROTEIN, URINE MANUAL 1+ mg/dL (NEGATIVE); UROBILINOGEN, URINE MANUAL NORMAL (NORMAL)
[2022-01-04 02:47] LABS: LEUKOCYTE ESTERASE, URINE MAN TRACE (NEGATIVE)
[2022-01-04 02:57] LABS: AMORPHOUS SEDIMENT, URINE SMALL AMOUNT (NEGATIVE); BACTERIA, URINE NONE SEEN; HYALINE CAST, URINE NONE SEEN /lpf (0-1); MUCUS, URINE SMALL AMOUNT (NEGATIVE); RBC, URINE 0-1 /hpf (0-3); SQUAMOUS EPITHELIAL CELL URINE SMALL AMOUNT /hpf (SMALL AMT)
[2022-01-04 03:00] LABS: HEMATOCRIT 38.7 % (42.0-52.0); HEMOGLOBIN 13.7 g/dl (13.5-17.5); MEAN CORPUSCULAR HEMOGLOBIN 34.2 pg (27.0-33.0); MEAN CORPUSCULAR HGB CONC 35.4 g/dl (32.0-36.5); MEAN CORPUSCULAR VOLUME 96.5 fl (80.0-96.0); PLATELET COUNT, AUTOMATED 125 10^3/uL (150-450); RED BLOOD COUNT 4.01 10^6/uL (4.30-6.10); WHITE BLOOD COUNT 5.8 10^3/uL (4.0-10.0)
[2022-01-04 03:06] LABS: AMPHETAMINES LEVEL URINE NEGATIVE (NEGATIVE); BARBITURATES URINE NEGATIVE (NEGATIVE); BENZODIAZEPINES URINE NEGATIVE (NEGATIVE); COCAINE METABOLITE URINE NEGATIVE (NEGATIVE); METHADONE URINE NEGATIVE (NEGATIVE); OPIATES URINE NEGATIVE (NEGATIVE); PHENCYCLIDINE URINE NEGATIVE (NEGATIVE)
[2022-01-04 03:12] LABS: CANNABINOIDS URINE POSITIVE (NEGATIVE)
[2022-01-04 03:26] LABS: CHLORIDE LEVEL 96 MMOL/L (98-107); POTASSIUM SERUM 3.5 MMOL/L (3.5-5.1); SODIUM LEVEL 135 MMOL/L (136-145)
[2022-01-04 03:27] LABS: ALBUMIN 4.8 G/DL (3.2-5.2); CARBON DIOXIDE LEVEL 26 MMOL/L (20-31)
[2022-01-04 03:32] LABS: ALKALINE PHOSPHATASE 120 U/L (46-116); BLOOD UREA NITROGEN 12 MG/DL (9-23); CALCIUM LEVEL 10.6 MG/DL (8.5-10.1); ETHYL ALCOHOL (ETHANOL) 0.003 % (0.000-0.010); GLUCOSE, FASTING 132 MG/DL (60-100)
[2022-01-04 03:34] LABS: ALT/SGPT 197 U/L (7.0-40); AST/SGOT 391 U/L (<34); CREATININE FOR GFR 0.83 MG/DL (0.70-1.30); GLOMERULAR FILTRATION RATE > 60.0 (>60); TOTAL PROTEIN 8.2 G/DL (5.7-8.2)
[2022-01-04] MEDS ORDERED: risperiDONE 1 MG TAB PO SCH (09:00)
[2022-01-04] MEDS ORDERED: NS 1,000 ML IV ONE (10:45)
[2022-01-04 12:03] LABS: CK-MB VALUE MASS < 1.0 NG/ML (<3.6); PHOSPHORUS LEVEL 2.8 MG/DL (2.5-4.9)
[2022-01-04 12:04] LABS: CPK CREATINE PHOSPHOKINASE 311 U/L (46-171); MB/CK RELATIVE INDEX 0.32 (< OR =4)
[2022-01-04 13:54] LABS: CK-MB VALUE MASS < 1.0 NG/ML (<3.6)
[2022-01-04 13:55] LABS: CPK CREATINE PHOSPHOKINASE 310 U/L (46-171); MB/CK RELATIVE INDEX 0.32 (< OR =4)
[2022-01-04] MEDS ORDERED: LORazepam 2 MG/ML VIAL IV PRN (13:55)
[2022-01-04] MEDS ORDERED: levETIRAcetam INJection 1,000 MG in D5W 100 ML IV ONE (14:00)
[2022-01-04] MEDS ORDERED: LORazepam 2 MG TAB PO PRN ×2 (14:15→15:40)
[2022-01-04] MEDS ORDERED: REME45TA2 PO (14:23)
[2022-01-04] MEDS ORDERED: HOME MED LIST COMPLETE! XX SCH (14:25)
[2022-01-04 14:27] VITALS: BP 160/108
[2022-01-04] MEDS ORDERED: LORazepam 2 MG/ML VIAL IV STA (14:30)
[2022-01-04] MEDS ORDERED: OXAZEPAM 15MG CAP PO SCH (15:40)
[2022-01-04] MEDS ORDERED: PROPRANOLOL 20 MG TAB PO PRN (16:40)
[2022-01-04 16:56] LABS: INR 1.02; PROTHROMBIN TIME 13.6 SECONDS (12.5-14.5)
[2022-01-04 16:57] LABS: PARTIAL THROMBOPLASTIN TIME 26.7 SECONDS (24.8-34.2)
[2022-01-04 17:06] LABS: CK-MB VALUE MASS < 1.0 NG/ML (<3.6)
[2022-01-04 17:12] LABS: CPK CREATINE PHOSPHOKINASE 546 U/L (46-171); MB/CK RELATIVE INDEX 0.18 (< OR =4)
[2022-01-04] MEDS ORDERED: GABAPENTIN 100 MG CAP PO SCH (21:00)
[2022-01-04] MEDS ORDERED: THIAMINE 100 MG TAB PO SCH ×2 (21:00)
[2022-01-04] MEDS ORDERED: levETIRAcetam 250MG TABLET (KEPPRA) PO SCH (21:00)
[2022-01-04] MEDS ORDERED: GABAPENTIN 400MG CAP PO SCH (21:00)
[2022-01-04] MEDS ORDERED: MIRTAZAPINE 15 MG TAB PO SCH (21:00)
[2022-01-05] MEDS ORDERED: ENOXAPARIN 40MG/0.4ML SYRINGE (J1650 PER 10MG) SC SCH (09:00)
[2022-01-05] MEDS ORDERED: FOLIC ACID 1MG TAB PO SCH ×2 (09:00)
[2022-01-05] MEDS ORDERED: MULTIVITAMINS/MINERALS THERAP 1 TAB PO SCH ×2 (09:00)
== END 2022-01-04 20:14 | disposition left against medical advice (07) | DRG 53 ==
LOC: M ED 01:05 → M ED INP 16:00 → ENRESERV 16:46
PROVIDERS: ADMIT Internal Medicine; ATTEND Internal Medicine
DX: G40.409 Other generalized epilepsy and epileptic syndromes, not intractable, without status epilepticus (principal); F32.A Depression, unspecified; F41.9 Anxiety disorder, unspecified; Z91.14 Patient's other noncompliance with medication regimen; K52.9 Noninfective gastroenteritis and colitis, unspecified; F10.10 Alcohol abuse, uncomplicated

== ENCOUNTER 2022-05-08 02:44 | Inpatient (IN) | payer OTHER ==
[~2022-05-08] VITALS: Ht 182.9 cm; Wt 69.9 kg
[2022-05-08] VITALS (11 sets, daily range): BP systolic 137–163; BP diastolic 82–95; O2SAT 97–99
[~2022-05-08 02:44] MED LIST changes: +REME45TA2 PO
[2022-05-08] MEDS ORDERED: NS 1,000 ML IV ONE (03:00)
[2022-05-08 03:22] LABS: VENOUS BASE EXCESS -0.7 (-2.0-2.0); VENOUS HCO3 23.6 MEQ/L (23.0-27.0); VENOUS O2 SATURATION 94.2 % (60.0-80.0); VENOUS PARTIAL PRESSURE CO2 38.3 mmHg (38.0-50.0); VENOUS PARTIAL PRESSURE O2 71.3 mmHg (30.0-50.0); VENOUS PH 7.408 UNITS (7.330-7.430); VENOUS STANDARD HCO3 23.8 MEQ/L; VENOUS TOTAL CO2 24.8 MEQ/L (24.0-28.0)
[2022-05-08 03:25] LABS: BASO # 0.1 10^3/uL (0.0-0.2); BASO % 0.9 % (0.0-1.0); EOS # 0.1 10^3/uL (0.0-0.5); EOS % 1.3 % (0.0-3.0); HEMATOCRIT 44.2 % (42.0-52.0); HEMOGLOBIN 15.5 g/dl (13.5-17.5); MEAN CORPUSCULAR HEMOGLOBIN 32.9 pg (27.0-33.0); MEAN CORPUSCULAR HGB CONC 35.1 g/dl (32.0-36.5); MEAN CORPUSCULAR VOLUME 93.8 fl (80.0-96.0); MONO # 0.5 10^3/uL (0.0-0.8); NEUTROPHILS # 7.7 10^3/uL (1.5-8.5); NEUTROPHILS % 73.4 % (36.0-66.0); PLATELET COUNT, AUTOMATED 263 10^3/uL (150-450); RED BLOOD COUNT 4.71 10^6/uL (4.30-6.10); WHITE BLOOD COUNT 10.5 10^3/uL (4.0-10.0)
[2022-05-08 03:47] LABS: AMPHETAMINES LEVEL URINE NEGATIVE (NEGATIVE); BARBITURATES URINE NEGATIVE (NEGATIVE); BENZODIAZEPINES URINE NEGATIVE (NEGATIVE); COCAINE METABOLITE URINE NEGATIVE (NEGATIVE); METHADONE URINE NEGATIVE (NEGATIVE); OPIATES URINE NEGATIVE (NEGATIVE); PHENCYCLIDINE URINE NEGATIVE (NEGATIVE)
[2022-05-08 03:48] LABS: ETHYL ALCOHOL (ETHANOL) 0.108 % (0.000-0.010)
[2022-05-08 03:50] LABS: ALBUMIN 4.6 G/DL (3.2-5.2); ALKALINE PHOSPHATASE 92 U/L (46-116); ALT/SGPT 78 U/L (7.0-40); AST/SGOT 76 U/L (<34); BILIRUBIN,DIRECT < 0.1 MG/DL (<0.4); BILIRUBIN,TOTAL 0.3 MG/DL (0.3-1.2); BLOOD UREA NITROGEN 10 MG/DL (9-23); CALCIUM LEVEL 10.1 MG/DL (8.5-10.1); CARBON DIOXIDE LEVEL 26 MMOL/L (20-31); CHLORIDE LEVEL 105 MMOL/L (98-107); CREATININE FOR GFR 0.85 MG/DL (0.70-1.30); GLOMERULAR FILTRATION RATE > 60.0 (>60); GLUCOSE, FASTING 143 MG/DL (60-100); POTASSIUM SERUM 5.2 MMOL/L (3.5-5.1); SALICYLATE LEVEL < 3.0 MG/DL (<30); SODIUM LEVEL 141 MMOL/L (136-145); TOTAL PROTEIN 8.1 G/DL (5.7-8.2)
[2022-05-08 03:51] LABS: ACETAMINOPHEN LEVEL < 2.0 UG/ML (10.0-20.0)
[2022-05-08 03:52] LABS: THYROID STIMULATING HORMONE 2.632 uIU/ML (0.55-4.78)
[2022-05-08 04:04] LABS: CANNABINOIDS URINE POSITIVE (NEGATIVE)
[2022-05-08] MEDS ORDERED: NS 2,320 ML in IV 1 EA IV ONE (04:15)
[2022-05-08] MEDS ORDERED: levETIRAcetam INJection 1,000 MG in D5W 100 ML IV ONE (04:15)
[2022-05-08 04:36] LABS: OSMOLALITY SERUM 328 MOSM/KG (275-295)
[2022-05-08] MEDS ORDERED: LORazepam 2 MG/ML 1ML VIAL IV STA ×3 (08:34→09:44)
[2022-05-08] MEDS ORDERED: RISP-9 PO (09:46)
[2022-05-08] MEDS ORDERED: AMOX875T2 PO (09:46)
[2022-05-08] MEDS ORDERED: PRAZ2CAP PO (09:46)
[2022-05-08] MEDS ORDERED: TRAZ150T90 PO (09:48)
[2022-05-08] MEDS ORDERED: MED REC COMMENT (09:49)
[2022-05-08] MEDS ORDERED: HOME MED LIST COMPLETE! XX SCH (09:50)
[2022-05-08] MEDS ORDERED: LORazepam 2 MG TAB PO PRN (09:55)
[2022-05-08 09:56] LABS: ALBUMIN 3.8 G/DL (3.2-5.2); ALKALINE PHOSPHATASE 77 U/L (46-116); ALT/SGPT 60 U/L (7.0-40); AST/SGOT 53 U/L (<34); BILIRUBIN,DIRECT < 0.1 MG/DL (<0.4); BILIRUBIN,TOTAL 0.2 MG/DL (0.3-1.2); TOTAL PROTEIN 6.8 G/DL (5.7-8.2)
[2022-05-08] MEDS: THIAMINE 100 MG TAB PO SCH ×2 (10:03→20:07)
[2022-05-08] MEDS: MULTIVITAMINS/MINERALS THERAP 1 TAB PO SCH (10:28)
[2022-05-08] MEDS: FOLIC ACID 1MG TAB PO SCH (10:28)
[2022-05-08 10:45] LABS: CK-MB VALUE MASS < 1.0 NG/ML (<3.6)
[2022-05-08 10:48] LABS: VALPROIC ACID (DEPAKOTE) < 3.0 UG/ML (50.0-100.0)
[2022-05-08 10:50] LABS: CPK CREATINE PHOSPHOKINASE 130 U/L (46-171); MB/CK RELATIVE INDEX 0.76 (< OR =4)
[2022-05-08 14:59] LABS: LITHIUM LEVEL < 0.10 MMOL/L (0.60-1.20)
[2022-05-08] MEDS ORDERED: LR 1,000 ML IV ONE (19:05)
[2022-05-08 19:30] LABS: VENOUS BASE EXCESS -2.3 (-2.0-2.0); VENOUS HCO3 20.3 MEQ/L (23.0-27.0); VENOUS O2 SATURATION 99.4 % (60.0-80.0); VENOUS PARTIAL PRESSURE CO2 29.3 mmHg (38.0-50.0); VENOUS PARTIAL PRESSURE O2 169.7 mmHg (30.0-50.0); VENOUS PH 7.459 UNITS (7.330-7.430); VENOUS STANDARD HCO3 22.6 MEQ/L; VENOUS TOTAL CO2 21.2 MEQ/L (24.0-28.0)
[2022-05-08 19:41] LABS: BASO # 0.1 10^3/uL (0.0-0.2); BASO % 0.6 % (0.0-1.0); EOS # 0.1 10^3/uL (0.0-0.5); EOS % 1.3 % (0.0-3.0); LYMPH # 2.3 10^3/uL (1.5-5.0); LYMPH % 26.1 % (24.0-44.0); MEAN CORPUSCULAR HEMOGLOBIN 32.2 pg (27.0-33.0); MEAN CORPUSCULAR HGB CONC 33.7 g/dl (32.0-36.5); MEAN CORPUSCULAR VOLUME 95.7 fl (80.0-96.0); MONO # 0.8 10^3/uL (0.0-0.8); MONO % 9.3 % (2.0-8.0); NEUTROPHILS # 5.5 10^3/uL (1.5-8.5); NEUTROPHILS % 62.4 % (36.0-66.0); PLATELET COUNT, AUTOMATED 220 10^3/uL (150-450); RED BLOOD COUNT 3.97 10^6/uL (4.30-6.10); WHITE BLOOD COUNT 8.7 10^3/uL (4.0-10.0)
[2022-05-08 19:48] LABS: HEMOGLOBIN 12.8 g/dl (13.5-17.5)
[2022-05-08 20:04] LABS: ALBUMIN 3.8 G/DL (3.2-5.2); ALKALINE PHOSPHATASE 78 U/L (46-116); ALT/SGPT 55 U/L (7.0-40); AST/SGOT 46 U/L (<34); BILIRUBIN,DIRECT 0.1 MG/DL (<0.4); BILIRUBIN,TOTAL 0.3 MG/DL (0.3-1.2); BLOOD UREA NITROGEN 9 MG/DL (9-23); CALCIUM LEVEL 9.9 MG/DL (8.5-10.1); CARBON DIOXIDE LEVEL 21 MMOL/L (20-31); CHLORIDE LEVEL 112 MMOL/L (98-107); CREATININE FOR GFR 0.78 MG/DL (0.70-1.30); GLOMERULAR FILTRATION RATE > 60.0 (>60); GLUCOSE, FASTING 113 MG/DL (60-100); POTASSIUM SERUM 3.5 MMOL/L (3.5-5.1); SODIUM LEVEL 144 MMOL/L (136-145); TOTAL PROTEIN 6.8 G/DL (5.7-8.2)
[2022-05-08] MEDS ORDERED: PROHANCE 279.3MG/ML 15ML VIAL As Ordered ONE (22:58)
[2022-05-09] VITALS (13 sets, daily range): BP systolic 130–146; BP diastolic 74–94; O2SAT 97–98
[2022-05-09 05:59] LABS: HEMATOCRIT 35.7 % (42.0-52.0); HEMOGLOBIN 12.3 g/dl (13.5-17.5); MEAN CORPUSCULAR HEMOGLOBIN 33.2 pg (27.0-33.0); MEAN CORPUSCULAR HGB CONC 34.5 g/dl (32.0-36.5); MEAN CORPUSCULAR VOLUME 96.5 fl (80.0-96.0); PLATELET COUNT, AUTOMATED 196 10^3/uL (150-450); WHITE BLOOD COUNT 6.7 10^3/uL (4.0-10.0)
[2022-05-09 06:09] LABS: ABG BASE EXCESS 0.1 (-2.0-2.0); ABG HCO3 23.6 MEQ/L (22.0-26.0); ABG O2 SATURATION 98.3 % (95.0-99.0); ABG PARTIAL PRESSURE CO2 34.8 mmHg (35.0-45.0); ABG STANDARD HCO3 24.6 MEQ/L (22.0-26.0); ABG TOTAL CO2 24.7 MEQ/L (22.0-29.0); ABG pH (ARTERIAL) 7.449 UNITS (7.350-7.450)
[2022-05-09 06:15] LABS: INR 1.02; PROTHROMBIN TIME 13.6 SECONDS (12.5-14.5)
[2022-05-09 06:17] LABS: CPK CREATINE PHOSPHOKINASE 147 U/L (46-171)
[2022-05-09 06:20] LABS: ALBUMIN 3.7 G/DL (3.2-5.2); ALKALINE PHOSPHATASE 76 U/L (46-116); ALT/SGPT 50 U/L (7.0-40); AST/SGOT 39 U/L (<34); BILIRUBIN,TOTAL 0.7 MG/DL (0.3-1.2); BLOOD UREA NITROGEN 9 MG/DL (9-23); CALCIUM LEVEL 9.3 MG/DL (8.5-10.1); CARBON DIOXIDE LEVEL 24 MMOL/L (20-31); CHLORIDE LEVEL 111 MMOL/L (98-107); CREATININE FOR GFR 0.83 MG/DL (0.70-1.30); GLOMERULAR FILTRATION RATE > 60.0 (>60); GLUCOSE, FASTING 94 MG/DL (60-100); POTASSIUM SERUM 3.7 MMOL/L (3.5-5.1); SODIUM LEVEL 144 MMOL/L (136-145); TOTAL PROTEIN 6.5 G/DL (5.7-8.2)
[2022-05-09] MEDS: FOLIC ACID 1MG TAB PO SCH (09:55)
[2022-05-09] MEDS: MULTIVITAMINS/MINERALS THERAP 1 TAB PO SCH (09:55)
[2022-05-09] MEDS: THIAMINE 100 MG TAB PO SCH (09:55)
[2022-05-09] MEDS ORDERED: FOLI1TAB11 PO (10:12)
[2022-05-09] MEDS ORDERED: VITMTA PO (10:12)
[2022-05-09] MEDS ORDERED: THIA100TA PO (10:12)
[2022-05-09] MEDS ORDERED: LITH300C PO (10:24)
== END 2022-05-09 12:28 | disposition home or self-care (01) | DRG 52 ==
LOC: M ED 02:44 → M ED INP 09:51 → ENRESERV 11:09 → M PCU 12:05
PROVIDERS: ADMIT Student in an Organized Health Care Education/Training Program; ATTEND Student in an Organized Health Care Education/Training Program
DX: G92.8 Other toxic encephalopathy (principal); E87.20 Acidosis, unspecified; R56.9 Unspecified convulsions; K50.90 Crohn's disease, unspecified, without complications; F10.90 Alcohol use, unspecified, uncomplicated; F41.9 Anxiety disorder, unspecified; F32.A Depression, unspecified; Z79.899 Other long term (current) drug therapy; F17.290 Nicotine dependence, other tobacco product, uncomplicated; F12.90 Cannabis use, unspecified, uncomplicated

== ENCOUNTER 2024-01-06 12:14 | Emergency (ER) | payer OTHER ==
[~2024-01-06] VITALS: Ht 182.9 cm; Wt 72.5 kg
[~2024-01-06 12:14] MED LIST changes: +AMOX875T2 PO; +FOLI1TAB11 PO; +GABA-1172 PO; +GABA-1635 PO; -GABA-282 PO; -GABA800T4 PO; +LITH300C PO; +MED REC COMMENT; -MIRT-60 PO; +MIRT-89 PO; +MIRT45TA68 PO; +PRAZ2CAP PO; -REME45TA2 PO; +RISP-105 PO; +RISP-106 PO; -RISP-8 PO; +THIA100TA PO; +TRAZ150T90 PO; +VITMTA PO
[2024-01-06 12:17] VITALS: TEMP 97.7
[2024-01-06] MEDS ORDERED: LORazepam 2 MG TAB PO PRN (12:40)
[2024-01-06 13:00] LABS: BASO # 0.1 10^3/uL (0.0-0.2); BASO % 1.4 % (0.0-1.0); EOS % 0.5 % (0.0-3.0); HEMATOCRIT 45.2 % (42.0-52.0); HEMOGLOBIN 15.8 g/dl (13.5-17.5); LYMPH % 25.8 % (24.0-44.0); MEAN CORPUSCULAR HEMOGLOBIN 36.6 pg (27.0-33.0); MEAN CORPUSCULAR VOLUME 104.6 fl (80.0-96.0); MONO # 0.5 10^3/uL (0.0-0.8); MONO % 13.3 % (2.0-8.0); NEUTROPHILS # 2.2 10^3/uL (1.5-8.5); NEUTROPHILS % 58.7 % (36.0-66.0); PLATELET COUNT, AUTOMATED 183 10^3/uL (150-450); RED BLOOD COUNT 4.32 10^6/uL (4.30-6.10); WHITE BLOOD COUNT 3.7 10^3/uL (4.0-10.0)
[2024-01-06 13:05] LABS: ETHYL ALCOHOL (ETHANOL) < 0.003 % (0.000-0.010)
[2024-01-06 13:07] LABS: ALBUMIN 4.6 G/DL (3.2-5.2); ALKALINE PHOSPHATASE 113 U/L (40-129); ALT/SGPT 85 U/L (7.0-40); AST/SGOT 259 U/L (<34); BILIRUBIN,DIRECT 0.4 MG/DL (<0.4); BILIRUBIN,TOTAL 1.2 MG/DL (0.3-1.2); BLOOD UREA NITROGEN 9 MG/DL (9-23); CALCIUM LEVEL 11.1 MG/DL (8.5-10.1); CARBON DIOXIDE LEVEL 28 MMOL/L (20-31); CHLORIDE LEVEL 103 MMOL/L (98-107); CREATININE FOR GFR 0.81 MG/DL (0.70-1.30); GLOMERULAR FILTRATION RATE > 60.0 (>60); GLUCOSE, FASTING 107 MG/DL (60-100); MAGNESIUM LEVEL 1.9 MG/DL (1.8-2.4); POTASSIUM SERUM 3.9 MMOL/L (3.5-5.1); SALICYLATE LEVEL < 3.0 MG/DL (<30); SODIUM LEVEL 136 MMOL/L (136-145); TOTAL PROTEIN 8.5 G/DL (5.7-8.2)
[2024-01-06 13:08] LABS: LITHIUM LEVEL < 0.10 MMOL/L (1.0-1.20)
[2024-01-06 13:09] LABS: THYROID STIMULATING HORMONE 4.444 uIU/ML (0.55-4.78)
[2024-01-06 13:12] LABS: CPK CREATINE PHOSPHOKINASE 92 U/L (46-171)
[2024-01-06] MEDS: THIAMINE 100 MG TAB PO SCH (13:13)
[2024-01-06] MEDS: MULTIVITAMINS/MINERALS THERAP 1 TAB PO SCH (13:13)
[2024-01-06] MEDS: FOLIC ACID 1MG TAB PO SCH (13:13)
[2024-01-06 15:06] LABS: AMPHETAMINES LEVEL URINE NEGATIVE (NEGATIVE); BARBITURATES URINE NEGATIVE (NEGATIVE); COCAINE METABOLITE URINE NEGATIVE (NEGATIVE); METHADONE URINE NEGATIVE (NEGATIVE); OPIATES URINE NEGATIVE (NEGATIVE); PHENCYCLIDINE URINE NEGATIVE (NEGATIVE)
[2024-01-06 15:07] LABS: BENZODIAZEPINES URINE NEGATIVE (NEGATIVE)
[2024-01-06 15:13] LABS: CANNABINOIDS URINE POSITIVE (NEGATIVE)
[2024-01-06 16:00] VITALS: BP 150/95; O2SAT 96
[2024-01-06] MEDS: OXAZEPAM 15MG CAP PO ONE (16:01)
[2024-01-06] MEDS ORDERED: OXAZ15CA4 PO (16:06)
== END 2024-01-06 16:27 | disposition home or self-care (01) ==
LOC: M ED 12:14
DX: G40.909 Epilepsy, unspecified, not intractable, without status epilepticus (principal); F10.231 Alcohol dependence with withdrawal delirium; R00.0 Tachycardia, unspecified; I10 Essential (primary) hypertension; F32.A Depression, unspecified; K50.90 Crohn's disease, unspecified, without complications; F17.200 Nicotine dependence, unspecified, uncomplicated; F12.10 Cannabis abuse, uncomplicated; Z79.2 Long term (current) use of antibiotics; Z79.899 Other long term (current) drug therapy